=== PATIENT | male | born 1985 | race Caucasian/White ===

== ENCOUNTER 2017-03-21 20:14 | Emergency (ER) | payer SELFPAY ==
[~2017-03-21] VITALS: Ht 182.9 cm; Wt 62.0 kg
[~2017-03-21 20:14] MED LIST: FOLI1TAB PO; LEXA10TA PO; QUET1TAB66 PO; THIA100T PO
[2017-03-21 20:15] VITALS: BP 116/68; PULSE 71; RESP 16; TEMP 97.8; O2SAT 97
[2017-03-21 21:31] VITALS: BP 124/64; PULSE 76; RESP 16; TEMP 97.3; O2SAT 97
[2017-03-21] MEDS ORDERED: SERO400T PO (21:31)
--- NOTE | 2017-03-21 21:52 | PD ---
HPI Chief Complaint: Pain: Acute or Chronic Time Seen by Provider: 21:40 Travel History International Travel<30 days: No Contact w/Intl Traveler<30days: No Traveled to known affect area: No History of Present Illness HPI 31-year-old male complains of left leg pain and left foot pain. Patient status post left leg traumatic injury about 7 years ago. Patient states that he started having cramping of the left leg for the past several weeks. Patient also complained of pain to the toes with the past several weeks. Patient denies any recent injury. Patient denies any fever chills. PFSH Past Medical History Autoimmune Disease: No Blood Disorders: No Anxiety: Yes Depression: Yes Cancer: No Cardiovascular Problems: No Diminished Hearing: No Endocrine: No Genitourinary: No Immune Disorder: No Implanted Vascular Access Dvce: No Musculoskeletal: No Neurologic: No Psychiatric: Yes Reproductive: No Influenza Vaccination: Yes Past Surgical History Oral Surgery: Yes (WISDOM TEETH) Other Surgery: Yes (LEFT HAND SURGERY, 2 FX'D VERTEBRE IN BACK AND PLATE IN LLE ) Social History Alcohol Use: No Tobacco Use: Yes (1/2-1PK PER DAY) Substance Use: No (PT HAS "METHADONE 10 MG" IN MEDICATIONS HISTORY) Allergies-Medications (Allergen,Severity, Reaction): Coded Allergies: No Known Allergies (Verified , 09/17/07) Reported Meds & Prescriptions Reported Meds & Active Scripts Active Reported Seroquel (Quetiapine Fumarate) 400 Mg Tab 400 Mg PO DAILY Review of Systems General / Constitutional: No: Fever Eyes: No: Visual changes HENT: No: Headaches Cardiovascular: No: Chest Pain or Discomfort Respiratory: No: Shortness of Breath Gastrointestinal: No: Abdominal Pain Genitourinary: No: Dysuria Musculoskeletal: Positive: Pain Skin: No Rash Neurologic: No: Weakness Psychiatric: No: Depression Endocrine: No: Polydipsia Hematologic/Lymphatic: No: Easy Bruising Physical Exam Narrative GENERAL: Well-nourished, well-developed patient. SKIN: Focused skin assessment warm/dry. HEAD: Normocephalic. EYES: No scleral icterus. No injection or drainage. NECK: Supple, trachea midline. No JVD or lymphadenopathy. CARDIOVASCULAR: Regular rate and rhythm without murmurs, gallops, or rubs. RESPIRATORY: Breath sounds equal bilaterally. No accessory muscle use. GASTROINTESTINAL: Abdomen soft, non-tender, nondistended. MUSCULOSKELETAL: No cyanosis, or edema. BACK: Nontender without obvious deformity. No CVA tenderness. Examination of the left leg reveals well-healed scars on the left low leg. Good DP pulses. Good capillary refill. Patient has mild diffuse tenderness over the left lower extremity. No redness no heat noted. Data Data Last Documented VS Vital Signs Date Time Temp Pulse Resp B/P Pulse Ox O2 Delivery O2 Flow Rate FiO2 03/21/17 21:31 97.3 76 16 124/64 97 Room Air Orders Foot, Complete ([id number]) (03/21/17 21:43) Tibia/Fibula (Ap/Lat) (03/21/17 21:43) MDM Medical Decision Making Medical Screen Exam Complete: Yes Emergency Medical Condition: Yes Interpretation(s) 2 Last Impressions Tibia/Fibula X-Ray 03/21/172142 Signed Impressions: Service Date/Time: Tuesday, March 21, 2017 22:03 - CONCLUSION: Previous internal fixation. No acute fracture. Anshu Stevenson MD Foot X-Ray 03/21/172142 Signed Impressions: Service Date/Time: Tuesday, March 21, 2017 22:05 - CONCLUSION: No acute disease. Anshu Stevenson MD 2:48 PM. Differential Diagnosis Differential diagnosis including strain, muscle spasm, DVT, arthralgia, cellulitis, fracture. Narrative Course 31-year-old male with left lower extremity pain. Status post traumatic injury to left leg 7 years ago. Diagnosis Primary Impression: Muscle spasm Patient Instructions: General Instructions Additional Instructions: Take medication as needed for pain. Follow-up local physician. Return if worse. Med/Other Pt SpecificInfo: Prescription(s) given Scripts Methocarbamol (Robaxin)750 Mg [id number] Mg PO QID #40 TAB Prov:Danis Singer MD 03/21/17 Ibuprofen 600 Mg [id number] Mg PO TID #60 TAB Prov:Danis Singer MD 03/21/17 Disposition: 01 DISCHARGE HOME Condition: Stable Danis Singer MD Mar 21, 2017 21:51
--- NOTE | 2017-03-21 22:23 | RADRPT ---
EXAM DATE/TIME: 03/21/2017 22:03 [facility] COMPARISON: No previous studies available for comparison. INDICATIONS : Left lower leg pain from no known injury. MEDICAL HISTORY : None. SURGICAL HISTORY : Left lower leg ORIF. ENCOUNTER: Initial ACUITY: 1 day PAIN SCORE: 8/10 LOCATION: Left lower leg. FINDINGS: Two view examination of the left tibia demonstrates no evidence of fracture or dislocation. Intramed ullary colt without hardware loosening. Bony mineralization is normal. Defect in the soft tissues of t he lower leg likely from previous trauma.. CONCLUSION: Previous internal fixation. No acute fracture. Anshu Stevenson MD on March 21, 2017 at 22:20 Board Certified Radiologist. This report was verified electronically.
--- NOTE | 2017-03-21 22:23 | RADRPT ---
EXAM DATE/TIME: 03/21/2017 22:05 [facility] COMPARISON: No previous studies available for comparison. INDICATIONS : Left foot pain from no known injury. MEDICAL HISTORY : None. SURGICAL HISTORY : Left lower leg ORIF. ENCOUNTER: Initial ACUITY: 2 weeks PAIN SCORE: 8/10 LOCATION: Left foot. FINDINGS: Three view examination of the left foot demonstrates no soft tissue swelling, dislocation, or fractur e. The tarsal bones appear intact. The interphalangeal and metatarsophalangeal joints are intact. The calcaneus is intact. Bony mineralization is normal. Internal fixation distal tibia. CONCLUSION: No acute disease. Anshu Stevenson MD on March 21, 2017 at 22:21 Board Certified Radiologist. This report was verified electronically.
[2017-03-21] MEDS ORDERED: ROBA750T PO (22:51)
[2017-03-21] MEDS ORDERED: IBUP-232 PO (22:51)
== END 2017-03-21 22:59 | disposition home or self-care (01) ==
LOC: NEPD 20:14
DX: M62.831 Muscle spasm of calf (principal); F41.9 Anxiety disorder, unspecified; F32.9 Major depressive disorder, single episode, unspecified; F17.200 Nicotine dependence, unspecified, uncomplicated; Z79.899 Other long term (current) drug therapy
CPT/HCPCS: 73590; 73630; 99283